=== PATIENT | female | born 1945 | race Hispanic/Latino ===

== ENCOUNTER 2017-07-29 10:03 | Day surgery (SDC) | payer MEDICARE ==
[2017-07-29] MEDS ORDERED: ANCEF/STERILE WATER 2 GM/20 ML IV NR (12:00)
[2017-07-29] MEDS ORDERED: LOPRESSOR PO ONE (12:31)
[2017-07-29] MEDS ORDERED: MORPHINE IV PRN (12:32)
[2017-07-29] MEDS ORDERED: ZOFRAN IV PRN (12:32)
--- NOTE | 2017-07-29 12:40 | Anesthesia Consultation ---
Anesthesia Consult and Med Hx Date of service: 07/29/17 - Airway Anesthetic Teeth Evaluation: Good, Caps (TOP FRONT TEETH) ROM Head & Neck: Adequate Mental/Hyoid Distance: Adequate Mallampati Class: Class II Intubation Access Assessment: Probably Good - Pulmonary Exam CTA: Yes - Cardiac Exam Cardiac Exam: RRR - Pre-Operative Health Status ASA Pre-Surgery Classification: ASA3 Proposed Anesthetic Plan: General Nerve Block: PECS BLOCK - Pulmonary Hx Smoking: No Hx Asthma: No Hx Sleep Apnea: No - Cardiovascular System Hx Hypertension: Yes Hx Heart Attack/AMI: Yes (2014) Hx Percutaneous Transluminal Coronary Angioplasty (PTCA): Yes (STENT X 1 2013) Hx Cardia Arrhythmia: Yes (AFIB) Hx Pacemaker: Yes (NON-DEPENDENT) - Central Nervous System Hx Seizures: No CVA: No Hx Psychiatric Problems: No - Endocrine Hx Renal Disease: No (CREATININE 0.7) Hx Liver Disease: No Hx Non-Insulin Dependent Diabetes: Yes - Other Systems Hx Alcohol Use: No Hx Substance Use: No Hx Cancer: Yes (RIGHT BREAST) - Additional Comments Anesthesia Medical History Comments: PONV
--- NOTE | 2017-07-29 12:43 | Anesthesia Day of Surgery ---
Anesthesia Day of Surgery - Day of Surgery Patient Examined: Yes Patient H&P Reviewed: Yes Patient is NPO: Yes Beta Blockers: Yes Cardiac Clearance: Yes
[2017-07-29] MEDS ORDERED: XYLOCAINE 1% 20 mL ONE (12:45)
[2017-07-29] MEDS ORDERED: DECADRON ONE ×2 (12:46→16:39)
[2017-07-29] MEDS ORDERED: MARCAINE 0.5% 30 ML INFILTRATI ONE (12:46)
[2017-07-29] MEDS ORDERED: SUBLIMAZE IV ONE (13:00)
[2017-07-29] MEDS ORDERED: VANCOMYCIN/NS 1 GM/250 ML 1 GM/250 ML BAG IV SCH (13:00)
[2017-07-29] MEDS ORDERED: PEPCID PO NR (13:00)
[2017-07-29] MEDS ORDERED: TRANSDERM-SCOP TD NR (13:00)
[2017-07-29] MEDS ORDERED: NEURONTIN PO NR (13:00)
[2017-07-29] MEDS ORDERED: NACL 0.9% 1000 ML 1,000 ML IV SCH (13:00)
[2017-07-29] MEDS ORDERED: VERSED IV NR (13:00)
--- NOTE | 2017-07-29 13:48 | Short Stay Summary ---
Short Stay Documentation Date of service: 07/29/17 - History H&P: obtained from office - Allergies and Medications Current Medications: Allergies codeine Allergy (Verified 07/23/17 17:35) Hives Penicillins Allergy (Verified 07/23/17 17:35) Nausea Home Medications Medication Instructions Recorded Confirmed Last Taken Type Aspirin [Adult Low Dose Aspirin EC] 81 mg PO DAILY 07/23/17 07/29/17 07/16/17 History AtorvaSTATin [Lipitor] 20 mg PO QHS 07/23/17 07/29/17 07/28/17 History Dabigatran [Pradaxa] 150 mg PO BID 07/23/17 07/29/17 07/16/17 History Metoprolol [Lopressor TAB] 50 mg PO BID 07/23/17 07/29/17 07/28/17 22:00 History Vitamin B Complex Vit C No.4 150 mg PO DAILY 07/23/17 07/29/17 07/16/17 History [Super B Complex] metFORMIN [Glucophage] 500 mg PO BID 07/23/17 07/29/17 07/27/17 History Ibuprofen 800 mg PO Q8HR PRN #30 tablet 07/29/17 Unknown Rx Active Medications Celecoxib (Celebrex) 200 mg PO PREOP NR Stop: 07/29/17 23:00 Last Admin: 07/29/17 12:48 Dose: 200 mg Famotidine (Pepcid) 20 mg PO PREOP NR Stop: 07/29/17 23:00 Last Admin: 07/29/17 12:48 Dose: 20 mg Gabapentin (Neurontin) 300 mg PO PREOP NR Stop: 07/29/17 23:00 Last Admin: 07/29/17 12:48 Dose: 300 mg Vancomycin HCl (Vancomycin/Ns 1 Gm/250 Ml) 1 gm in 250 mls @ 167.007 mls/hr IV PREOP ROMMEL PRN Reason: Protocol Stop: 07/29/17 23:59 Last Admin: 07/29/17 13:27 Dose: 167.007 mls/hr Sodium Chloride (Nacl 0.9% 1000 Ml) 1,000 mls @ 75 mls/hr IV DIRECT ROMMEL Last Admin: 07/29/17 12:49 Dose: 75 mls/hr Midazolam HCl (Versed) 2 mg IV PREOP NR Stop: 01/10/18 23:59 Last Admin: 07/29/17 13:07 Dose: 2 mg Morphine Sulfate (Morphine) 2 mg IV Q10MIN PRN PRN Reason: Pain, Moderate (4-6) Ondansetron HCl (Zofran) 4 mg IV ONCE PRN PRN Reason: Nausea And Vomiting Scopolamine (Transderm-Scop) 1 each TD PREOP NR Stop: 08/01/17 12:59 Last Admin: 07/29/17 12:59 Dose: 1 each - Brief post op/procedure progress note Date of procedure: 07/29/17 Pre-op diagnosis: Right breast cancer of the upper outer quadrant Post-op diagnosis: same Procedure: Right partial mastectomy and SLNB Anesthesia: GETA Findings: Radiograph specimen with clip present; x3 SLNs Surgeon: TAPAN EISENBERG Estimated blood loss: minimal Pathology: list (right partial mastectomy and SLNs) Specimen disposition: to lab Condition: stable - Disposition Condition at discharge: Good Disposition: DC-01 TO HOME OR SELFCARE Short Stay Discharge Plan Activity: other (no heavy lifting) Diet: regular Wound: other (keep incision clean and dry and may shower in 48 hours; no baths, pools or lakes; do not rub or scrub incision; remove gauze in 24 hours from nipple) Follow up with: ERICA CHRISTOPHER DO [Primary Care Provider] - 7 Days TAPAN EISENBERG MD [Staff Physician] - 7 Days Prescriptions: Ibuprofen 800 mg PO Q8HR PRN #30 tablet PRN Reason: Pain
--- NOTE | 2017-07-29 13:52 | Operative Report ---
Operative Report Operative Report: Date of Service: July 29, 2017 Preoperative diagnosis: Right breast cancer of the upper outer quadrant Postoperative diagnosis: Same Procedure: Right partial mastectomy of the upper outer quadrant and SLNB Surgeon: Deepti Correa MD Anesthesia: General Findings: Right clip present within radiograph specimen; 3 SLNs Complications: None Drains: None EBL: Minimal Disposition: PACU in good condition Indications for operative procedure: This is a 72 year old lady with newly diagnosed right breast cancer of the upper outer quadrant, Stage I [id number] ER/ [place] positive. Recommendations are to proceed with breast conservation, discussed in great detail of surgical options of a central mastectomy versus partial mastectomy versus mastectomy given tumor location, 12:00 position 1-2 cm from the nipple. She wished to proceed with breast conservation and saving the nipple and she understood if margins were positive would then have to go back to the operating room and proceed with a central mastectomy or total mastectomy. Genetic testing pending and patient did not want to await genetic test results prior to surgery. Procedure in detail: Anesthesia place right pectoral block. Patient was then taken to the operating room. Gen. anesthesia was administered. The right nipple was injected with radioisotope. The right breast and axilla were prepped and draped in the normal sterile operative fashion. Timeout was performed. Gamma probe was inserted into the axilla. The area of hot spot was identified. A right axillary incision was made with a 15 blade knife with dissection taken down to the subcutaneous tissues. The axillary fascia was opened with the Bovie cautery. 3 SLNS were identified. All remaining counts were less than 10% of the highest count. Lymph nodes were sent to pathology for permanent processing. Hemostasis was obtained in the right axillary cavity. Axillary cavity was appropriately irrigated and suctioned. Hemostasis was noted. Axillary fascia was approximated and closed using interrupted 3-0 Vicryl and the skin brought together and closed using a running 4-0 Monocryl followed by skin affix. Attention was then taken towards the right breast. The high frequency ultrasound was used to localize the known cancer at the 12:00 position 1-2 cm from the nipple. A superior perioareolar breast incision was made with a 15 blade knife and dissection taken down to subcutaneous tissues. First began raising of the superior flap with dissection taken down to the pectoralis muscle, followed by raising of the medial flap, lateral flap and inferior flap with all flaps taken down to the pectoralis muscle. The inferior flap was raised using a 15 blade knife to avoid compromising the blood supply to the nipple. The breast area of concern was appropriately removed posteriorly from the pectoralis muscle with the aid of the Bovie cautery. Specimen was marked and then sent to pathology and radiology; radiograph specimen with clip and mass present. Breast cavity was irrigated and hemostasis was obtained. The posterior deep breast tissues were approximated and closed using interrupted 3- 0 Vicryl. The subcutaneous tissues were approximated and closed using interrupted 3-0 Vicryl followed by closing of the skin with a running 4-0 Monocryl and skin affix. The nipple had good capillary refill but nitropaste was applied given initial concerns of blood supply to the nipple being compromised given location of tumor. The patient tolerated surgery very well and she was awaken from anesthesia without any complication and transported to PACU in good condition.
[2017-07-29] MEDS ORDERED: SUBLIMAZE ONE (13:55)
[2017-07-29] MEDS ORDERED: DIPRIVAN 10 MG/ML IV ONE (13:55)
[2017-07-29] MEDS ORDERED: XYLOCAINE MPF 2% ONE (13:55)
[2017-07-29] MEDS ORDERED: WATER FOR IRRIG STERILE IR ONE (14:00)
[2017-07-29] MEDS ORDERED: NITRO-BID 2% TP ONE ×2 (16:30→16:35)
--- NOTE | 2017-07-29 16:34 | XRay Report ---
Operative breast specimen: A biopsy marker is included in the single tissue specimen. No other information obtained.
[2017-07-29] MEDS ORDERED: ZOFRAN ONE (16:39)
[2017-07-29] MEDS ORDERED: NACL 0.9% 1000 ML 1,000 ML ONE (16:39)
[2017-07-29 19:21] VITALS: BP 139/79
== END 2017-07-29 18:55 | disposition home or self-care (01) ==
LOC: OR 10:03
PROVIDERS: ATTEND Surgery
DX: C50.911 Malignant neoplasm of unspecified site of right female breast (principal); E11.9 Type 2 diabetes mellitus without complications; Z88.0 Allergy status to penicillin; Z88.8 Allergy status to other drugs, medicaments and biological substances; I48.91 Unspecified atrial fibrillation; I21.3 ST elevation (STEMI) myocardial infarction of unspecified site; I10 Essential (primary) hypertension; E78.5 Hyperlipidemia, unspecified
CPT/HCPCS: 19303; 38525; 64450; 76098; 78800; 82962; 88307; 88333; 88342; 88361; A9541; J1100; J2250; J2405; J2704; J3010; J3370; J7030

== ENCOUNTER 2020-07-16 06:19 | Day surgery (SDC) | payer MEDICARE ==
[2020-07-16] MEDS ORDERED: LIDOCAINE (1%) 10 MG/1 ML VIAL 20 ML MDV ONE (07:30)
[2020-07-16] MEDS ORDERED: BUPIVACAINE/PF (0.25%) 2.5 MG/ML 30 ML VIAL INFILTRATI ONE ×2 (07:30→08:18)
[2020-07-16 08:07] VITALS: BP 141/73
[2020-07-16] MEDS ORDERED: LIDOCAINE (1%) 10 MG/1 ML VIAL 20 ML MDV INFILTRATI ONE (08:17)
--- NOTE | 2020-07-16 09:17 | Operative Report ---
Operative Report Operative Report: Operative Report: Date of Service: July 16, 2020 Properative diagnosis: Left port with central venous access not indicated Postoperative diagnosis: Same Procedure: Left port removal Surgeon: Deepti Correa MD Anesthesia: Local Findings: Removal of left port in its entirety Complications: None Drain: None Disposition: PACU in good condition Indications for operative procedure: This is a 75-year-old lady with a personal history of bilateral breast cancer and ovarian cancer. Patient has completed chemotherapy and central venous access no longer indicated. Patient wished to proceed with port removal. Procedure in detail: Patient was taken to the minor procedure room. She was laid supine. The port was identified of the left chest.The left chest was prepped and draped in the normal sterile operative fashion. The skin was anesthetized with 1% lidocaine mix with quarter percent Marcaine. The prior port incision was incised with a 15 blade knife and taken down to the subcutaneous tissues. The port was encountered. The catheter was encountered and was appropriately dissected free and removed in its entirety. Then proceed with port removal with dissection of scar tissue around the port. The port was removed in its entirety without any complications. Hemostasis was obtained. The subcutanoeus tisses were brought together and closed with interrupted 3-0 Vicryl followed by closing of the skin with a running 4-0 Monocryl. She tolerated the procedure very well and was transferred to PACU in good condition.
== END 2020-07-16 06:20 | disposition home or self-care (01) ==
LOC: OR 06:19
PROVIDERS: ATTEND Surgery
DX: Z45.2 Encounter for adjustment and management of vascular access device (principal); G62.9 Polyneuropathy, unspecified; I11.0 Hypertensive heart disease with heart failure; I50.9 Heart failure, unspecified; I48.91 Unspecified atrial fibrillation; K21.9 Gastro-esophageal reflux disease without esophagitis; M19.90 Unspecified osteoarthritis, unspecified site; E11.42 Type 2 diabetes mellitus with diabetic polyneuropathy; D64.9 Anemia, unspecified; Z98.890 Other specified postprocedural states; Z88.8 Allergy status to other drugs, medicaments and biological substances; Z88.5 Allergy status to narcotic agent; Z88.0 Allergy status to penicillin; Z79.899 Other long term (current) drug therapy; Z79.84 Long term (current) use of oral hypoglycemic drugs; Z98.41 Cataract extraction status, right eye; Z98.42 Cataract extraction status, left eye; Z95.0 Presence of cardiac pacemaker; Z90.49 Acquired absence of other specified parts of digestive tract; Z90.12 Acquired absence of left breast and nipple; Z85.3 Personal history of malignant neoplasm of breast; Z85.42 Personal history of malignant neoplasm of other parts of uterus; Z87.440 Personal history of urinary (tract) infections; Z86.73 Personal history of transient ischemic attack (TIA), and cerebral infarction without residual deficits
CPT/HCPCS: 82962; 88300; 88302